=== PATIENT | female | born 1985 | race African-American/Black ===

== ENCOUNTER 2016-08-04 11:17 | Emergency (ER) | payer MEDICAID ==
[~2016-08-04] VITALS: Ht 170.2 cm; Wt 96.0 kg
[~2016-08-04 11:17] MED LIST: [UNRECOGNIZED DRUG - REMARK]
[2016-08-04 11:41] VITALS: BP 130/66
== END 2016-08-04 14:00 | disposition left against medical advice (07) ==
LOC: ER 13:41
DX: R10.9 Unspecified abdominal pain (principal); M54.9 Dorsalgia, unspecified; Z53.21 Procedure and treatment not carried out due to patient leaving prior to being seen by health care provider

== ENCOUNTER 2016-08-04 13:33 | Emergency (ER) | payer MEDICAID ==
[~2016-08-04] VITALS: Ht 162.6 cm; Wt 55.0 kg
[2016-08-04] MEDS ORDERED: SODIUM CHLORIDE 0.9% 1,000 ML IV ONE (17:27)
[2016-08-04] MEDS ORDERED: ACETAMINOPHEN WITH CODEINE 300/30MG TABLET PO STA (17:27)
[2016-08-04] MEDS ORDERED: ONDANSETRON 4MG ODT PO STA (17:27)
[2016-08-04 17:56] LABS: HEMATOCRIT. 37.1 % (36.0-48.0); HEMOGLOBIN. 12.4 g/dL (12.0-16.0); MEAN CORPUSCULAR HGB CONC 33.5 g/dL (31.0-37.0); MEAN CORPUSCULAR VOLUME 83.8 fL (81.0-99.0); MEAN PLATELET VOLUME 9.3 fl (7.4-10.4); PLATELET 220 x1000/uL (130-400); RED BLOOD CELL COUNT 4.43 mill/uL (4.2-5.4); RED CELL DISTRIBUTION WIDTH 12.8 % (11.6-14.6); WHITE BLOOD COUNT 13.1 x1000/uL (4.5-11.0)
[2016-08-04 17:57] LABS: DIFFERENTIAL COMMENT 1
[2016-08-04 18:09] LABS: ALANINE AMINOTRANSFERASE 11 IU/L (13-61); ALBUMIN 4.3 g/dL (3.4-5.0); ANION GAP 13; CALCIUM 9.6 mg/dL (8.5-10.1); CARBON DIOXIDE 26 mEq/L (21-32); CHLORIDE 104 mEq/L (98-107); INDEX HEMOLYSI 1 (1-3); INDEX ICTERIC 1 (1-4); INDEX LIPEMIC 1 (1-3); LIPASE 133 IU/L (73-393); UREA NITROGEN BLOOD 11 mg/dL (7-21); eGFR > 60 mL/min (>60)
[2016-08-04 18:19] LABS: PLATELET ESTIMATE NORMAL
[2016-08-04 20:10] VITALS: BP 128/64
== END 2016-08-04 20:13 | disposition home or self-care (01) ==
LOC: ER 13:53
DX: R10.11 Right upper quadrant pain (principal); R11.10 Vomiting, unspecified; Z90.49 Acquired absence of other specified parts of digestive tract
CPT/HCPCS: 36415; 76705; 80053; 83690; 85025; 96360; 99285; Q0162; J7030